=== PATIENT | female | born 1990 | race Caucasian/White ===

== ENCOUNTER 2024-02-15 11:28 | Inpatient (IN) ==
[2024-02-15 12:18] LABS: Hematocrit (blood only) 36.6 % (37.0-47.0); Hemoglobin 12.5 g/dl (12.0-16.0); Mean Corpuscular Hemoglobin 34.6 pg (25.0-34.0); Mean Corpuscular Hgb Conc 34.2 g/dL (32.0-36.0); Mean Corpuscular Volume 101.4 fL (80.0-100.0); Mean Platelet Volume 12.2 fL (9.4-12.4); Platelet Count 60 K/uL (130-400); RDW Standard Deviation 64.4 fL (36.4-46.3); Red Blood Count 3.61 M/uL (4.20-5.40); White Blood Count 7.43 K/ul (4.8-10.8)
[2024-02-15 12:22] LABS: Pregnancy Test, Serum Negative (Negative)
[2024-02-15 12:26] LABS: Albumin Globulin Ratio 0.9 (0.9-2); Albumin Level 3.5 gm/dl (3.4-5.0); BUN Creatinine Ratio 3.5 (10-20); Bilirubin,Total 9.8 mg/dl (0.2-1.0); Calcium 8.9 mg/dl (8.6-10.3); Creatinine Clr Calc Pharmacy 112.1 ml/min; Est GFR (African American) 142.2 ml/min; Est GFR (Non-African American) 122.7 ml/min; Globulin 4.1 gm/dl (2.5-4.0); Potassium 3.2 mmol/L (3.5-5.1); Total Protein 7.6 gm/dl (6.0-8.3)
--- NOTE | 2024-02-15 12:46 | XRay Report ---
XR chest 1V not portable HISTORY: 33 years-old Female Tachycardia; fluid retention COMPARISON: None TECHNIQUE: PA view the chest FINDINGS: Cardiomediastinal and hilar silhouettes are within normal limits. There is no pneumothorax, pleural e ffusion or airspace consolidation. The bones appear grossly intact. IMPRESSION: No acute process. ACT 112: Negative or not required by law. The above report was generated using voice recognition software. It may contain grammatical, syntax o r spelling errors. Electronically signed by: Jean Ignacio M.D. 02/15/2024 12:44 PM
[2024-02-15 13:14] LABS: Basophils # (auto) 0.02 K/uL (0.00-0.20); Basophils % (auto) 0.3 %; Eosinophils # (auto) 0.08 K/uL (0.00-0.50); Eosinophils % (auto) 1.1 %; Immature Granulocytes # (auto) 0.03 K/uL (0.01-0.20); Immature Granulocytes % (auto) 0.4 %; Lymphocytes % (auto) 18.8 %; Monocytes # (auto) 0.58 K/uL (0.11-0.59); Monocytes % (auto) 7.8 %; Neutrophils # (auto) 5.32 K/uL (1.40-6.50); Neutrophils % (auto) 71.6 %
[2024-02-15 15:48] LABS: INR 1.3 (0.9-1.1); Partial Thromboplastin Ratio 1.3; Partial Thromboplastin Time 37 Seconds (21-31); Prothrombin Time 14.3 Seconds (9.0-12.0)
[2024-02-15] MEDS: LORazepam 1 MG/1 ML SYR ED Inj Use IV STA (15:57)
[2024-02-15] MEDS: SODIUM CHLORIDE 0.9% 500 ML IV ONE (15:59)
[2024-02-15] MEDS: POTASSIUM CHLORIDE / WTR 10 MEQ/100 ML PLCT IV ONE (16:00)
[2024-02-15] MEDS: OPTIRAY 320 100ml IV ONE (16:19)
--- NOTE | 2024-02-15 16:38 | CT Scan Report ---
CT SCAN OF THE ABDOMEN AND PELVIS WITH IV CONTRAST CLINICAL HISTORY: Elevated hepatic transaminases. Thrombocytopenia. Abdominal distention. COMPARISON STUDY: No priors. TECHNIQUE: Following the IV administration of 93 cc of Optiray 320, CT scan of the abdomen and pelvi s is performed from the lung bases to the proximal femora. Images are reviewed in the axial, sagittal , and coronal planes. IV contrast was administered without complication. A dose lowering technique wa s utilized adhering to the principles of ALARA. CT DOSE: 726.33 mGy.cm FINDINGS: Lung bases: The heart is normal in size and without pericardial effusion. The lung bases are clear. T here is a tiny hiatal hernia. Esophageal varices are noted. Liver: The contrast-enhanced liver is enlarged, measuring 22 cm in length. The liver demonstrates het erogeneous and diffusely diminished attenuation indicating steatosis. Nodularity of the hepatic surfa ce contour indicates morphologic changes of cirrhosis. There is no intrahepatic biliary ductal dilata tion. The hepatic veins and portal veins are patent. There are innumerable tiny hypoechoic foci seen throughout the liver., Possibly extending tiny cysts versus biliary hamartomas. Gallbladder: There are calcified gallstones no CT evidence of acute cholecystitis. Nonspecific gallbl adder wall thickening/edema is likely related to adjacent hepatocellular disease. Spleen: Normal in size and attenuation. Pancreas: Unremarkable. Adrenal glands: Unremarkable. Kidneys: The contrast enhanced kidneys are normal in size and without hydronephrosis. The kidneys enh ance symmetrically. Abdominal vasculature: The abdominal aorta is normal in course and caliber. Bowel: There is no bowel obstruction. There are prominent periportal collaterals. Fold thickening thr oughout the bowel is nonspecific and may be related to hypoproteinemia. The appendix is well-visuali zed and normal. Peritoneum: There is a small volume of abdominopelvic ascites. No intraperitoneal free air is identif ied. There is a fat and fluid containing umbilical hernia. Lymphadenopathy: Mildly enlarged upper abdominal lymph nodes are likely related to chronic liver dise ase. Pelvic viscera: The bladder is largely decompressed and grossly unremarkable. The uterus and adnexa a re normal as imaged noting bilateral ovarian follicles. Skeletal structures: No lytic or blastic lesions are seen. IMPRESSION: 1. The liver is enlarged, steatotic, and shows morphologic change of cirrhosis. 2. Esophageal varices and a small volume of abdominopelvic ascites indicate portal hypertension. 3. Innumerable tiny round hypodense foci are seen throughout the liver, likely representing tiny cyst s versus biliary hamartomas. This could also represent regenerative nodularity of cirrhosis. GI follo w-up is recommended. 4. Cholelithiasis without CT evidence of acute cholecystitis. 5. Nonspecific fold thickening is seen throughout the bowel, possibly related to hypoproteinemia. Cor relate clinically for signs of a nonspecific enteritis. 6. Additional findings as above. ACT 112: Negative or not required by law. Electronically signed by: Josh Elias M.D. 02/15/2024 4:37 PM
[2024-02-15] MEDS: MULTI-VITAMIN INFUSION 10 ML, THIAMINE HCL 100 MG, FOLIC ACID 1 MG in SODIUM CHLORIDE 0... IV ONE (17:29)
[2024-02-15] MEDS ORDERED: MAGNESIUM HYDROXIDE SUSP 30 ML UDC PO PRN (18:05)
[2024-02-15] MEDS ORDERED: GABAPENTIN 1200MG ALCOHOL WITHDRAWAL LOAD PO STA (18:05)
[2024-02-15] MEDS ORDERED: ONDANSETRON INJ 2 MG/ML 2 ML VIAL IV PRN (18:05)
[2024-02-15] MEDS ORDERED: POLYETHYLENE (MIRALAX) 17 GM PACK PO PRN (18:05)
[2024-02-15] MEDS ORDERED: LORazepam 1 MG in SYRINGE 0.5 ML IV PRN ×2 (18:05→21:55)
[2024-02-15] MEDS ORDERED: ALUMINUM/MAGNESIUM SUSP 30 ML UDC PO PRN (18:05)
[2024-02-15] MEDS ORDERED: ACETAMINOPHEN 325 MG TAB PO PRN (18:05)
--- NOTE | 2024-02-15 18:19 | History & Physical Report ---
Date of Service February 15, 2024 Assessment & Plan (1) Liver failure, acute: (2) Transaminitis: (3) Hepatitis B: (4) Alcohol abuse: (5) Thrombocytopenia: (6) Hypokalemia: Plan Ms. Oneill is a 33 year old female that presents to the ED today as recommended by her PCP after blood work revealed Hepatitis B Positive and Transaminitis. She has explained that she has had a habit of drinking either a bottle of wine multiple shots, or 8-10 beers on a regular almost daily basis. She reports that she is in the process of a separation from her ex- and in a custody faye with him regarding her 7-year-old son. She currently has partial custody of him. She is also in the process of looking for a permanent place to live. She has 2 friends that brought her into the ER today who are nondrinker's and both of her parents are known drinkers and overall good support for her. It appears that everybody has been advising her not to drink alcohol anymore. She is going to counseling with a therapist which has been helpful but she does realize that she is in need of a more intensive rehabilitation in order to abstain from alcohol. Really honest conversation held with her with regards to how severe and concerning her presentation is at such a young age. LFT's done yesterday and today: AST 360--> 309, SLT 54--> 46, Alk Phos 143. T. bili 9.8, serum alcohol level 150. UDS pending and hCG negative. In the ED she received Ativan 2 mg and banana bag. No tremors noted. Patient will be admitted for alcohol induced liver failure. Will trend LFT's, GI consultation to help determine next steps, AWSS scale for withdrawal effects, replace potassium orally, BHL conversation and continued supportive treatment. Acute Liver Failure: Transaminitis: Hepatits B: Alcohol Abuse: Acute Telangiectasia, ecchymosis, epistaxis (yesterday), ascites, scleral icterus LFT's done yesterday and today: AST 360--> 309, SLT 54--> 46, Alk Phos 143 TBili 9.8 Serum Alcohol level 150 UDS pending, HCG negative CTAP: -The liver is enlarged, steatotic, and shows morphologic change of cirrhosis. -Esophageal varices and a small volume of abdominopelvic ascites indicate portal hypertension. -tiny round hypodense foci are seen throughout the liver, likely representing tiny cysts versus biliary hamartomas. This could also represent regenerative nodularity of cirrhosis. GI follow-up is recommended. -Cholelithiasis without CT evidence of acute cholecystitis. -Nonspecific fold thickening is seen throughout the bowel, possibly related to hypoproteinemia. Correlate clinically for signs of a nonspecific enteritis. *MELD score: 18 *Maddrey's Discriminant Function for ETOH Hepatitis: 20.4. > 32 indicates poor prognosis and may benefit from glucocorticoid therapy Check Phos level GI Consult placed May need Hepatology consult in the future Thrombocytopenia: Acute Plt 60 No active overt signs of bleeding, although has had easy bruising Recheck labs in AM Hypokalemia: Acute Serum K+ 3.2; replaced with 1 G IV Add 40 PO KCL Recheck K+ in AM Disposition: PCP: Dr. Rylie Vidal Code Status: Full Code VTE Prophylaxis: KELLY's/SCD's for now I spent a total of 88 minutes coordinating, documenting, and providing care for this patient excluding time spent in the performance of separately billed services. All of the aforementioned completed while collaborating with the assigned attending physician for a full treatment plan. Please see their addendum for further details. History of Present Illness Chief Complaint: referred by outpatient provider Primary Care Provider: Rylie Vidal DO Ms. Oneill is a 33 year old female that presents to the ED today as recommended by her PCP after blood work revealed Hepatitis B Positive and Transaminitis. She has explained that she has had a habit of drinking either a bottle of wine multiple shots, or 8-10 beers on a regular almost daily basis. She reports that she is in the process of a separation from her ex- and in a custody faye with him regarding her 7-year-old son. She currently has partial custody of him. She is also in the process of looking for a permanent place to live. She has 2 friends that brought her into the ER today who are nondrinker's and both of her parents are known drinkers and overall good support for her. It appears that everybody has been advising her not to drink alcohol anymore. She is going to counseling with a therapist which has been helpful but she does realize that she is in need of a more intensive rehabilitation in order to abstain from alcohol. Really honest conversation held with her with regards to how severe and concerning her presentation is at such a young age. LFT's done yesterday and today: AST 360--> 309, SLT 54--> 46, Alk Phos 143. T. bili 9.8, serum alcohol level 150. UDS pending and hCG negative. In the ED she received Ativan 2 mg and banana bag. No tremors noted. CTAP: -The liver is enlarged, steatotic, and shows morphologic change of cirrhosis. -Esophageal varices and a small volume of abdominopelvic ascites indicate portal hypertension. -tiny round hypodense foci are seen throughout the liver, likely representing tiny cysts versus biliary hamartomas. This could also represent regenerative nodularity of cirrhosis. GI follow-up is recommended. -Cholelithiasis without CT evidence of acute cholecystitis. -Nonspecific fold thickening is seen throughout the bowel, possibly related to hypoproteinemia. Correlate clinically for signs of a nonspecific enteritis. *MELD score: 18 *Maddrey's Discriminant Function for ETOH Hepatitis: 20.4. > 32 indicates poor prognosis and may benefit from glucocorticoid therapy On examination, patient is AOx4 and able to answer all questions appropriately. No signs of tremor at bedside. She has telangiectasia on her face, ecchymosis, epistaxis (yesterday), ascites, scleral icterus. Patient will be admitted for alcohol induced liver failure. Will trend LFT's, GI consultation to help determine next steps, AWSS scale for withdrawal effects, replace potassium orally, BHL conversation and continued supportive treatment. Allergies Allergy/AdvReac Type Severity Reaction Status Date / Time No Known Allergies Allergy Unverified 02/15/24 11:42 Home Medications Medication Instructions Recorded Confirmed Type pftjdzfhlsde-stdoykyt-zhba 1 tab PO DAILY 02/15/24 02/15/24 History fumarate 18 mg-folic acid 400 mcg tablet (One-A-Day [facility]) Past Med/Surg History Medical History (Updated 02/15/24 @ 19:23 by Aung Yu MD) Hepatitis B Thrombocytopenia Hypokalemia Alcohol abuse Transaminitis Liver failure, acute Surgical History (Updated 02/15/24 @ 19:38 by SHELBY Singh) No pertinent past surgical history Family History (Updated 02/15/24 @ 19:39 by SHELBY Singh) Other Depression Hypertension Social History Smoking Status: Current some day smoker Tobacco Type: Cigarettes Second Hand Exposure: Yes; Do You Dip or Chew Tobacco: No; Hx Alcohol Use: Yes Alcohol type: beer, wine and hard liquor Hx Substance Use: No Preferred Language: [place] Communication Ability: Effective Cad Application Support Specialist Required: No Beliefs That Will Affect Care: None Current Living Situation: Family Feels Safe at Home: Yes Safety Concerns: Feels Safe At This Time Assistive Devices: None Review of Systems Review of Systems: Neuro: (-) Falls, trauma, slurred speech HEENT: (-) CONNELLY, dizziness, dysphagia, visual or auditory changes CV: (-) CP, palpitations, swelling Resp: (-) SOB GI: (-) appetite changes, N/V/D, bowel changes : (-) urinary changes Skin: (-) rashes (+) easy bruising Psych: (+) anxiety, depression Physical Exam Physical Exam: Neuro: AAOx4, PERRLA, no aphagia, memory changes, CNII-XII grossly intact HEENT: head normocephalic, moist mucus membranes. Telangiectasia on her face. Scleral icterus CV: S1/S2, (-) M/G/R, (-) edema, cap refill < 3 seconds Resp: Lungs CTA in all bernard. On RA GI: Abdomen large and distended with ascites. Dull to percussion. No fluid shifting noted. Soft and nontender. Ax4 bowel sounds, (-) CVA tenderness Musculoskeletal: 5/5 B/L UE strength, 5/5 B/L LE strength. No gait disturbance Skin: (-) rashes , (+) ecchymosis on arms Psych: euthymic mood Results & Data Results & Data Vital Signs (Past 12 Hours) Vital Signs Temp Pulse Pulse Resp BP BP Pulse Ox 02/15/24 14:30 132 H 20 130/86 97 02/15/24 14:00 121 H 20 132/82 96 02/15/24 13:46 122 H 02/15/24 11:42 37.1 C 143 H 18 148/106 H 95 O2 Del Method 02/15/24 14:30 Room Air 04/19/24 14:00 02/15/24 13:46 02/15/24 11:42 Room Air Laboratory Results Short CBC 02/15/24 Range/Units 11:53 WBC 7.43 (4.8-10.8) K/ul Hgb 12.5 (12.0-16.0) g/dl Hct 36.6 L (37.0-47.0) % Plt Count 60 L (130-400) K/uL BMP 02/15/24 11:53 Sodium 138 Potassium 3.2 L Chloride 101 Carbon Dioxide 26 BUN 2 L Creatinine 0.57 L Glucose 102 H Calcium 8.9 Liver Function 02/15/24 Range/Units 11:53 Total Bilirubin 9.8 H (0.2-1.0) mg/dl AST 309 H (13-39) U/L ALT 46 (7-52) U/L Alkaline Phosphatase 143 H (34-104) U/L Albumin 3.5 (3.4-5.0) gm/dl Diagnostic Findings Chest X-Ray 02/15/24 11:48 XR chest 1V not portable HISTORY: 33 years-old Female Tachycardia; fluid retention COMPARISON: None TECHNIQUE: PA view the chest FINDINGS: Cardiomediastinal and hilar silhouettes are within normal limits. There is no pneumothorax, pleural effusion or airspace consolidation. The bones appear grossly intact. IMPRESSION: No acute process. ACT 112: Negative or not required by law. The above report was generated using voice recognition software. It may contain grammatical, syntax or spelling errors. Electronically signed by: Jean Ignacio M.D. 02/15/2024 12:44 PM Abdomen/Pelvis CT 02/15/24 15:04 CT SCAN OF THE ABDOMEN AND PELVIS WITH IV CONTRAST CLINICAL HISTORY: Elevated hepatic transaminases. Thrombocytopenia. Abdominal distention. COMPARISON STUDY: No priors. TECHNIQUE: Following the IV administration of 93 cc of Optiray 320, CT scan of the abdomen and pelvis is performed from the lung bases to the proximal femora. Images are reviewed in the axial, sagittal, and coronal planes. IV contrast was administered without complication. A dose lowering technique was utilized adhering to the principles of ALARA. CT DOSE: 726.33 mGy.cm FINDINGS: Lung bases: The heart is normal in size and without pericardial effusion. The lung bases are clear. There is a tiny hiatal hernia. Esophageal varices are noted. Liver: The contrast-enhanced liver is enlarged, measuring 22 cm in length. The liver demonstrates heterogeneous and diffusely diminished attenuation indicating steatosis. Nodularity of the hepatic surface contour indicates morphologic changes of cirrhosis. There is no intrahepatic biliary ductal dilatation. The hepatic veins and portal veins are patent. There are innumerable tiny hypoechoic foci seen throughout the liver., Possibly extending tiny cysts versus biliary hamartomas. Gallbladder: There are calcified gallstones no CT evidence of acute cholecystitis. Nonspecific gallbladder wall thickening/edema is likely related to adjacent hepatocellular disease. Spleen: Normal in size and attenuation. Pancreas: Unremarkable. Adrenal glands: Unremarkable. Kidneys: The contrast enhanced kidneys are normal in size and without hydronephrosis. The kidneys enhance symmetrically. Abdominal vasculature: The abdominal aorta is normal in course and caliber. Bowel: There is no bowel obstruction. There are prominent periportal collaterals. Fold thickening throughout the bowel is nonspecific and may be related to hypoproteinemia. The appendix is well-visualized and normal. Peritoneum: There is a small volume of abdominopelvic ascites. No intraperitoneal free air is identified. There is a fat and fluid containing umbilical hernia. Lymphadenopathy: Mildly enlarged upper abdominal lymph nodes are likely related to chronic liver disease. Pelvic viscera: The bladder is largely decompressed and grossly unremarkable. The uterus and adnexa are normal as imaged noting bilateral ovarian follicles. Skeletal structures: No lytic or blastic lesions are seen. IMPRESSION: 1. The liver is enlarged, steatotic, and shows morphologic change of cirrhosis. 2. Esophageal varices and a small volume of abdominopelvic ascites indicate portal hypertension. 3. Innumerable tiny round hypodense foci are seen throughout the liver, likely representing tiny cysts versus biliary hamartomas. This could also represent regenerative nodularity of cirrhosis. GI follow-up is recommended. 4. Cholelithiasis without CT evidence of acute cholecystitis. 5. Nonspecific fold thickening is seen throughout the bowel, possibly related to hypoproteinemia. Correlate clinically for signs of a nonspecific enteritis. 6. Additional findings as above. ACT 112: Negative or not required by law. Electronically signed by: Josh Elias M.D. 02/15/2024 4:37 PM Code Status & VTE Plan Code Status Full Code in the event of cardiac or respiratory arrest VTE Prophylaxis Plan VTE Prophylaxis will be ordered: Yes Supervising Physician Co-Signing Physician Notes I have seen and examined the patient and have discussed the case with the provider above. I have reviewed the advanced practitioner's documentation, and I agree with, and take responsibility for that plan of care. This is a 33 yo alcoholic female presenting with signs and symptoms of progressed liver disease. Evidence of cirrhosis with small volume newly developed ascites (per her report), evidence of portal hypertension as noted above. She reports concern over red spots on her superior anterior chest which are consistent with spider angiomata related to liver disease. She denies any abdominal pain, fevers, chills or other issues today. She is intoxicated with ETOH on arrival today, coming to the ER per referral from her PCP for abnormal outpatient bloodwork. My exam is consistent with that noted above. Meds/labs/imaging reviewed. Hyperbilirubinemia with total bili 9.8. MELD i s 18, MDF is 16. Elevation is AST likely related to recent alcohol use. Thrombocytopenia possibly related to chronic liver damage. Agree with trending labs in am and consulting GI. She is not encephalopathic and has minimal ascitic fluid present. CT a/p reveals no evidence of PVT. She was extensively counseled on the need to quit drinking with encouragement to consider inpatient rehab from hospital discharge. She was counseled on alcohol withdrawal and did receive Ativan IV in the ER. Cont PRN. Banana bag given and cont with thiamine and folate supplementation. Appreciate GI recommendations for additional workup/recommendations. DO Sunday
[2024-02-15] MEDS: GABAPENTIN 600 MG TAB PO ONE (18:55)
[2024-02-15] MEDS: POTASSIUM CHLORIDE / WTR 10 MEQ/100 ML PLCT IV SCH (19:15)
--- NOTE | 2024-02-15 19:23 | Emergency Department Note ---
Impression & Plan Liver failure, acute, Transaminitis, Alcohol abuse, Hypokalemia ED Provider Note NAME: JOHANNA SNEED AGE: 33 SEX: Female INFORMANT: Patient ED PROVIDER(S): Aung Yu MD CHIEF COMPLAINT: Referred by For abnormal labs PLAN: Disposition: Admitted Outpatient prescription management: none Referral: None MEDICAL DECISION MAKING: Patient presented due to abnormal LFTs. On physical examination she had stigmata of liver failure. Her laboratory testing revealed a unremarkable white blood cell count and hemoglobin. Platelet count was low at 60 bpm. Chemistry panel revealed mild hypokalemia. Her liver functions reveal a significant elevation of AST at 309. ALT within normal limits. Alk phos minimally elevated. Patient's blood alcohol level was significantly elevated 150. Patient states that she did stop consuming alcohol about 12 hours ago. ECG showed a sinus tachycardia at 135. Patient was given a banana bag. She was also given IV Ativan as I did have concerns for mild withdrawal given her tachycardia. Patient was treated with IV potassium. CT imaging was performed and reveals hepatic steatosis and ascites. Varices also noted. Patient has no complaints to suggest active GI bleeding or recent GI bleeding. Labs do not support this either. Patient is going to need admission to the hospital for further workup and management. Patient in agreement. Consultation was made with the [facility] hospitalist service. Patient was evaluated in the ER and admitted for further management Care/management discussed with: operational risk manager Level of care consideration(s): After review of the information above and other included data, I feel the patient requires escalation of care to admission Triage Nursing notes: reviewed and agree them. Vital Signs: reviewed and remarkable for tachycardia. Last heart rate documented was 142 at 1806. On reassessment the heart rate had improved and was 110 at 1922. Additional History obtained from: none Chronic Medical/Social Conditions affecting care: Alcohol abuse Prior/ Outside/ External records reviewed: Outpatient laboratory testing from the [facility] system obtained. Patient was found to have a platelet count of 55 with a hemoglobin of 12. Differential Diagnosis: Etiologies such as alcohol abuse, liver failure, gastroenteritis, food borne illness, infections, appendicitis, diverticulitis, inflammatory bowel disease, GI bleed, biliary pathology, as well as others were entertained. Diagnostics, independently interpreted by me: ECG: Twelve-lead ECG reveals sinus tachycardia [address] elevation or depression. Cardiac Monitoring: Cardiac monitoring ordered by me: The patient was placed on continuous cardiac monitoring and observed. It revealed a sinus tachycardia at 105 beats per minute without ectopy or evidence of dysrhythmia. Medical decision rules: none Imaging studies: CT scan as above. I refer you to the EMR for further details. HPI: 33 year old Female arrives for evaluation of abnormal labs. Patient had blood work done at the [facility] and was found to have elevated LFTs and low platelets. Patient was referred to the ER for further evaluation. She notes drinking alcohol every few days. She denies having withdrawal symptoms. She states she did go "hard" on alcohol last night and stopped drinking around 3 AM. Patient does note some bumps and bruises that have popped up and did have some nosebleeds but none currently. Patient denies any hematemesis. No new medications prescribed. Patient denies any mushroom use or Tylenol use. She does note some abdominal distention but that has improved over the last few days. She did have some constipation but that had resolved. Pt denies LOC, headache, fevers, chills, diaphoresis, visual changes, neck pain, chest pain, breathing difficulties, nausea, vomiting, abdominal pain, back pain, melena, hematochezia, urinary symptoms, numbness, weakness, lymphadenopathy, rash, or other complaints.. PAST MEDICAL HISTORY: See Below, PAST SURGICAL HISTORY: See Below, SOCIAL HISTORY: See Below, alcohol use HOME MEDICATIONS: See Below ALLERGIES: See Below VITALS: See Below PHYSICAL EXAMINATION: GENERAL: Awake, alert, anxious-appearing, in no distress HENT: Normocephalic, atraumatic. Oropharynx unremarkable. EYES: Normal conjunctiva. Sclera mildly-icteric. NECK: Inspection normal. Non-tender. Supple. No nuchal rigidity. FROM. No masses. RESPIRATORY: Clear to auscultation. No wheezes. No rales. Normal respiratory effort. CARDIAC: Tachycardic rate. Normal rhythm. No murmurs. No rubs. Extremities warm and well perfused. Pulses equal. No JVD. GI: Soft, minimally-distended. Positive fluid wave. No tenderness to palpation. No rebound or guarding. No masses. RECTAL: Deferred. MUSCULOSKELETAL: Atraumatic. Chest examination reveals no tenderness. The back is symmetrical on inspection without obvious abnormality. There is no CVA tenderness to palpation. No joint edema. LOWER EXTREMITIES: Calves are equal size bilaterally and non-tender. No edema. No discoloration. NEURO: Normal sensorium. No sensory or motor deficits noted. SKIN: Spider telangiectasia present on the chest wall. No other rash or jaundice noted. PROCEDURES: none CRITICAL CARE: none OBSERVATION NOTE: none Past Med/Surg History Medical History (Updated 02/15/24 @ 19:23 by Aung Yu MD) Hepatitis B Thrombocytopenia Hypokalemia Alcohol abuse Transaminitis Liver failure, acute Social History Smoking Status: Current every day smoker Tobacco Type: Cigarettes Preferred Language: Romanian Feels Safe at Home: Yes Allergies Allergies Allergy/AdvReac Type Severity Reaction Status Date / Time No Known Allergies Allergy Unverified 02/15/24 11:42 Home Meds Home Medications Medication Instructions Recorded Confirmed [id number] 1 tab PO DAILY 02/15/24 02/15/24 fumarate 18 mg-folic acid 400 mcg tablet (One-A-Day Women's Complete) Results & Data (ED) Vital Signs Vital Signs - 24 hr 02/15/24 11:42 02/15/24 13:46 02/15/24 14:00 Temperature 37.1 C Temperature Source Oral Pulse Rate 143 H 122 H Pulse Rate [Apical] 121 H Pulse Rhythm Regular Pulse Strength Normal Respiratory Rate 18 20 Respiratory Effort / Characteristics Non-Labored Spontaneous Respiratory Depth Normal Respiratory Pattern Regular Blood Pressure 148/106 H Blood Pressure [Right Arm] 132/82 Blood Pressure Mean 120 Blood Pressure Mean [Right Arm] 98 Blood Pressure Position Sitting Pulse Oximetry 95 96 Oxygen Delivery Method Room Air Sepsis Recent Fever Within 48 Hours No Sepsis New/Unexplained Change in Mental Status No Sepsis Action Taken by Nursing No Action Required 02/15/24 14:30 02/15/24 16:00 02/15/24 18:06 Temperature Temperature Source Pulse Rate Pulse Rate [Apical] 132 H 126 H 142 H Pulse Rhythm Pulse Strength Respiratory Rate 20 20 20 Respiratory Effort / Characteristics Respiratory Depth Respiratory Pattern Blood Pressure Blood Pressure [Right Arm] 130/86 127/79 121/82 Blood Pressure Mean Blood Pressure Mean [Right Arm] 100 95 95 Blood Pressure Position Pulse Oximetry 97 96 96 Oxygen Delivery Method Room Air Room Air Sepsis Recent Fever Within 48 Hours Sepsis New/Unexplained Change in Mental Status Sepsis Action Taken by Nursing Laboratory Data 02/15/24 11:53 02/15/24 11:53 Lab Results 02/15/24 02/15/24 Range/Units 11:53 14:32 WBC 7.43 (4.8-10.8) K/ul RBC 3.61 L (4.20-5.40) M/uL Hgb 12.5 (12.0-16.0) g/dl Hct 36.6 L (37.0-47.0) % MCV 101.4 H (80.0-100.0) fL MCH 34.6 H (25.0-34.0) pg MCHC 34.2 (32.0-36.0) g/dL RDW Std Deviation 64.4 H (36.4-46.3) fL RDW Coeff of Thomas 18.0 H (11.5-14.5) % Plt Count 60 L (130-400) K/uL MPV 12.2 (9.4-12.4) fL Immature Gran % (Auto) 0.4 % Neut % (Auto) 71.6 % Lymph % (Auto) 18.8 % [place] % (Auto) 7.8 % Eos % (Auto) 1.1 % Baso % (Auto) 0.3 % Neut # (Auto) 5.32 (1.40-6.50) K/uL Lymph # (Auto) 1.40 (1.20-3.40) K/uL [place] # (Auto) 0.58 (0.11-0.59) K/uL Eos # (Auto) 0.08 (0.00-0.50) K/uL Baso # (Auto) 0.02 (0.00-0.20) K/uL Immature Gran # (Auto) 0.03 (0.01-0.20) K/uL PT 14.3 H (9.0-12.0) Seconds INR 1.3 H (0.9-1.1) APTT 37 H (21-31) Seconds PTT Ratio 1.3 Sodium 138 (136-145) mmol/L Potassium 3.2 L (3.5-5.1) mmol/L Chloride 101 (98-107) mmol/L Carbon Dioxide 26 (21-32) mmol/L Anion Gap 11 (3-11) BUN 2 L (6-23) mg/dl Creatinine 0.57 L (0.6-1.2) mg/dl Est Cr Clr Drug Dosing 112.1 ml/min Est GFR ( Amer) 142.2 ml/min Est GFR (Non-Af Amer) 122.7 ml/min BUN/Creatinine Ratio 3.5 L (10-20) Glucose 102 H (70-99(Fasting)) mg/dl Calcium 8.9 (8.6-10.3) mg/dl Total Bilirubin 9.8 H (0.2-1.0) mg/dl AST 309 H (13-39) U/L ALT 46 (7-52) U/L Alkaline Phosphatase 143 H (34-104) U/L Total Protein 7.6 (6.0-8.3) gm/dl Albumin 3.5 (3.4-5.0) gm/dl Globulin 4.1 H (2.5-4.0) gm/dl Albumin/Globulin Ratio 0.9 (0.9-2) Lipase 59 (11-82) U/L HCG, Qual Negative (Negative) Ethyl Alcohol mg/dL 150.9 H (<10.0) mg/dl Administered Medications Discontinued Medications Gabapentin (Gabapentin 600 Mg Tab) 1,200 mg PO NOW ONE Stop: 02/15/24 18:06 Last Admin: 02/15/24 18:55 Dose: 1,200 mg Documented By: LUIS Multivitamins 10 ml/ Thiamine HCl 100 mg/ Folic Acid 1 mg/Sodium Chloride 1,011.2 mls @ 500 mls/hr IV .Q2H2M ONE Stop: 02/15/24 17:46 Last Admin: 02/15/24 17:29 Dose: 500 mls/hr Documented By: LUIS Sodium Chloride (Nss) 500 mls @ 999 mls/hr IV .Q31M ONE Stop: 02/15/24 16:15 Last Infusion: 02/15/24 16:43 Dose: Infused Documented By: Admin: 02/15/24 15:59 Dose: 999 mls/hr Documented By: LUIS Potassium Chloride (K Carlos Manuel / Wtr) 10 meq in 100 mls @ 100 mls/hr IV ONE ONE Stop: 02/15/24 16:45 Last Infusion: 02/15/24 17:07 Dose: Infused Documented By: Admin: 02/15/24 16:00 Dose: 100 mls/hr Documented By: LUIS Ioversol (Optiray 320 100ml) 93 ml IV ONCE ONE Stop: 02/15/24 16:20 Last Admin: 02/15/24 16:19 Dose: 93 ml Documented By: RENO Lorazepam (Lorazepam 1 Mg/1 Ml Syr Ed Inj Use) 2 mg IV ONE STA Stop: 02/15/24 15:46 Last Admin: 02/15/24 15:57 Dose: 2 mg Documented By: LUIS Imaging Data Radiologist's Impression: Chest X-Ray 02/15/24 11:48 XR chest 1V not portable HISTORY: 33 years-old Female Tachycardia; fluid retention COMPARISON: None TECHNIQUE: PA view the chest FINDINGS: Cardiomediastinal and hilar silhouettes are within normal limits. There is no pneumothorax, pleural effusion or airspace consolidation. The bones appear grossly intact. IMPRESSION: No acute process. ACT 112: Negative or not required by law. The above report was generated using voice recognition software. It may contain grammatical, syntax or spelling errors. Electronically signed by: Jean Ignacio M.D. 02/15/2024 12:44 PM Abdomen/Pelvis CT 02/15/24 15:04 CT SCAN OF THE ABDOMEN AND PELVIS WITH IV CONTRAST CLINICAL HISTORY: Elevated hepatic transaminases. Thrombocytopenia. Abdominal distention. COMPARISON STUDY: No priors. TECHNIQUE: Following the IV administration of 93 cc of Optiray 320, CT scan of the abdomen and pelvis is performed from the lung bases to the proximal femora. Images are reviewed in the axial, sagittal, and coronal planes. IV contrast was administered without complication. A dose lowering technique was utilized adhering to the principles of ALARA. CT DOSE: 726.33 mGy.cm FINDINGS: Lung bases: The heart is normal in size and without pericardial effusion. The lung bases are clear. There is a tiny hiatal hernia. Esophageal varices are noted. Liver: The contrast-enhanced liver is enlarged, measuring 22 cm in length. The liver demonstrates heterogeneous and diffusely diminished attenuation indicating steatosis. Nodularity of the hepatic surface contour indicates morphologic changes of cirrhosis. There is no intrahepatic biliary ductal dilatation. The hepatic veins and portal veins are patent. There are innumerable tiny hypoechoic foci seen throughout the liver., Possibly extending tiny cysts versus biliary hamartomas. Gallbladder: There are calcified gallstones no CT evidence of acute cholecystitis. Nonspecific gallbladder wall thickening/edema is likely related to adjacent hepatocellular disease. Spleen: Normal in size and attenuation. Pancreas: Unremarkable. Adrenal glands: Unremarkable. Kidneys: The contrast enhanced kidneys are normal in size and without hydronephrosis. The kidneys enhance symmetrically. Abdominal vasculature: The abdominal aorta is normal in course and caliber. Bowel: There is no bowel obstruction. There are prominent periportal collaterals. Fold thickening throughout the bowel is nonspecific and may be related to hypoproteinemia. The appendix is well-visualized and normal. Peritoneum: There is a small volume of abdominopelvic ascites. No intraperitoneal free air is identified. There is a fat and fluid containing umbilical hernia. Lymphadenopathy: Mildly enlarged upper abdominal lymph nodes are likely related to chronic liver disease. Pelvic viscera: The bladder is largely decompressed and grossly unremarkable. The uterus and adnexa are normal as imaged noting bilateral ovarian follicles. Skeletal structures: No lytic or blastic lesions are seen. IMPRESSION: 1. The liver is enlarged, steatotic, and shows morphologic change of cirrhosis. 2. Esophageal varices and a small volume of abdominopelvic ascites indicate portal hypertension. 3. Innumerable tiny round hypodense foci are seen throughout the liver, likely representing tiny cysts versus biliary hamartomas. This could also represent regenerative nodularity of cirrhosis. GI follow-up is recommended. 4. Cholelithiasis without CT evidence of acute cholecystitis. 5. Nonspecific fold thickening is seen throughout the bowel, possibly related to hypoproteinemia. Correlate clinically for signs of a nonspecific enteritis. 6. Additional findings as above. ACT 112: Negative or not required by law. Electronically signed by: Josh Elias M.D. 02/15/2024 4:37 PM Discharge Plan Visit Data Chief Complaint: Referred by Doctor Stated Complaint: LIVER PROBLEMS, REF BY DOC ED Provider: Aung Yu Discharge Problem: Liver failure, acute, Transaminitis, Alcohol abuse, Hypokalemia Forms Stand Alone Forms: My [facility] Prescriptions Prescriptions: No Action One-A-Day Women's Complete 18 mg iron- 400 mcg Tablet 1 tab PO DAILY Referrals Referrals: Rylie Vidal DO [Primary Care Provider] -
[2024-02-15 20:18] LABS: Folate (Folic Acid),Ser orPlas 14.66 ng/ml (>5.38)
[2024-02-15] MEDS: POTASSIUM CHLORIDE CRTAB 20 MEQ TABCR PO STA (21:32)
[2024-02-15] MEDS ORDERED: PROMETHAZINE HCL 6.25 MG in SODIUM CHLORIDE 0.9% 50 ML IV PRN (21:53)
[2024-02-15] MEDS ORDERED: LORazepam 2 MG in SYRINGE 1 ML IV PRN (21:55)
[2024-02-15] MEDS ORDERED: LORazepam 3 MG in SYRINGE 1.5 ML IV PRN (21:55)
[2024-02-15] MEDS ORDERED: Ativan IV Alcohol Withdrawal--Active Protocol IV PRN (21:55)
[2024-02-15 22:35] LABS: Magnesium 1.7 mg/dl (1.7-2.4)
[2024-02-15] MEDS: NSS + 20MEQ KCL 20 MEQ/1,000 ML BAG IV ONE (22:41)
[2024-02-15] MEDS: POTASSIUM CHLORIDE PWD 20 MEQ PACK PO STA (22:41)
--- NOTE | 2024-02-15 22:52 | Communication Note ---
Date of Service: February 15, 2024 9:45 PM Patient with self-limited epistaxis episode without headache complaints. 1050 PM Hematemesis without unusual abdominal pain as per RN. SBP 110s Heart rate 1 40-1 60s as per RN Hemoglobin 9.5 from 12.5 on admission platelets 45 from 60 on admission AP UGIB Esophageal varices on CT imaging Alcoholic cirrhosis Anemia secondary to above Worsening thrombocytopenia ICU transfer due to hemodynamic instability N.p.o. IV PPI and IV octreotide Transfuse 1 unit PRBC given active bleeding Transfuse 1 unit for his platelets given level less than [address] Case [address] Patel of GI. Emergent EGD to be done tonight.
[2024-02-15] MEDS: ALBUMIN 25% 25 GM/100 ML VIAL IV ONE (22:56)
[2024-02-15] MEDS ORDERED: ACETAMINOPHEN 500 MG TAB PO PRN (23:07)
[2024-02-15 23:08] LABS: Basophils # (auto) 0.02 K/uL (0.00-0.20); Basophils % (auto) 0.3 %; Eosinophils # (auto) 0.06 K/uL (0.00-0.50); Eosinophils % (auto) 0.9 %; Hematocrit (blood only) 28.6 % (37.0-47.0); Hemoglobin 9.5 g/dl (12.0-16.0); Immature Granulocytes # (auto) 0.03 K/uL (0.01-0.20); Immature Granulocytes % (auto) 0.5 %; Lymphocytes # (auto) 1.52 K/uL (1.20-3.40); Mean Corpuscular Hemoglobin 34.4 pg (25.0-34.0); Mean Corpuscular Hgb Conc 33.2 g/dL (32.0-36.0); Mean Corpuscular Volume 103.6 fL (80.0-100.0); Mean Platelet Volume 12.5 fL (9.4-12.4); Monocytes # (auto) 0.55 K/uL (0.11-0.59); Monocytes % (auto) 8.3 %; Neutrophils # (auto) 4.43 K/uL (1.40-6.50); Platelet Count 45 K/uL (130-400); RDW Coefficient of Variation 18.6 % (11.5-14.5); RDW Standard Deviation 67.2 fL (36.4-46.3); Red Blood Count 2.76 M/uL (4.20-5.40); White Blood Count 6.61 K/ul (4.8-10.8)
[2024-02-15] MEDS ORDERED: STAT IV/IM STA (23:13)
[2024-02-15] MEDS ORDERED: SODIUM CHLORIDE 0.9% 250 ML IV PRN (23:18)
[2024-02-15] MEDS: PROMETHAZINE HCL 6.25 MG in SODIUM CHLORIDE 0.9% 50 ML IV STA (23:19)
[2024-02-15] MEDS: PANTOprazole 80 MG in DEXTROSE 5% 100 ML IV STA (23:20)
[2024-02-15] MEDS: MAGNESIUM SULFATE / D5W 1 GM/100 ML BAG IV ONE (23:30)
[2024-02-15] MEDS: cefTRIAXone SODIUM 2,000 MG in DEXTROSE 5 % MINI-B 50 ML IV SCH (23:40)
[2024-02-15 23:45] LABS: INR 1.5 (0.9-1.1); Prothrombin Time 15.6 Seconds (9.0-12.0)
[2024-02-16] MEDS: PANTOprazole 40 MG in DEXTROSE 5% MINI-B 100 ML IV SCH (00:10)
[2024-02-16] MEDS: METOPROLOL TARTRATE 1 MG/ML VIAL IV STA (00:21)
--- NOTE | 2024-02-16 00:22 | Anesthesiology Consultation ---
Date of Service February 16, 2024 Assessment & Plan Chart Review Chart Review: Acceptable Risk for Surgery and Patient NOT seen in Pre Admission Testing Consults Requested none ASA [id number] Proposed Anesthesia Anesthesia Type: General History Height/Weight Height: 5 ft 2 in Weight: 58.2 kg Allergies Allergy/AdvReac Type Severity Reaction Status Date / Time No Known Allergies Allergy Unverified 02/15/24 11:42 Medications Home Medications Medication Instructions Recorded Confirmed Last Taken myszbqmbwqhj-swifvjnd-shua 1 tab PO DAILY 02/15/24 02/15/24 Unknown fumarate 18 mg-folic acid 400 mcg tablet (One-A-Day Women's Complete) Active Medications Generic Name Dose Route Start Last Admin Trade Name Freq PRN Reason Stop Dose Admin Ceftriaxone Sodium 2,000 mg/ 50 mls @ 100 mls/hr 02/15/24 23:00 02/15/24 23:40 Dextrose IV 02/25/24 22:59 100 mls/hr Q24H ELVIA Administration Protocol Past Medical History Medical History Hepatitis B Thrombocytopenia Hypokalemia Alcohol abuse Transaminitis Liver failure, acute GI Bleed Anemia cirrhosis esophageal varices ascites Exercise / Class Metabolic Activity II 4-5 Yardwork/Stairs/Walk up hill Past Family History Family History Other Depression Hypertension Past Surgical History Surgical History No pertinent past surgical history Past Anesthesia History No Hx of Anesthesia Complications and No Family Hx of Anesthesia Complications History of PONV No Hx of PONV and No Hx of Motion Sickness Social History Smoking Status: Current some day smoker Do You Dip or Chew Tobacco: No Hx Alcohol Use: Yes Alcohol type: beer, wine and hard liquor alcohol intake frequency: a few times a week Alcohol Intake Frequency Comment: last drink 02/14/24 Hx Substance Use: No Physical Exam Vital Signs Last Vital Signs Temp 37.4 C 02/15/24 23:10 Pulse 148 H 02/15/24 23:10 Resp 20 02/15/24 23:10 BP 112/76 02/15/24 23:10 Pulse Ox 96 02/15/24 23:10 O2 Del Method Room Air 02/15/24 23:10 Testing Laboratory Results 02/15/24 22:26 02/15/24 11:53 PT 15.6 Seconds (9.0-12.0) H 02/15/24 22:26 INR 1.5 (0.9-1.1) H 02/15/24 22:26 APTT 37 Seconds (21-31) H 02/15/24 11:53 Electrocardiogram Date: 02/15/24 Findings: + ST @ (@ 135) Chest X-Ray Date: 02/15/24 Findings: + NAD
--- NOTE | 2024-02-16 00:38 | Critical Care Consultation ---
Date of Consultation February 16, 2024 Assessment & Plan (1) Acute GI bleeding: Reason Critically Ill: 33-year-old female with history of EtOH abuse presents to the ICU following admission for acute liver failure, with development of GI bleed and varices noted on CT abdomen and pelvis. Currently receiving blood product transfusion, while awaiting emergent EGD. Neuro - [facility] ICU: Negative EtOH abuseno current symptoms of alcohol withdrawal. EtOH 150 on admission. Continue with GRACIELA S scale and Ativan as needed Cardiac - Tachycardialikely compensatory following acute GI bleed. Sinus tachycardia on monitor. Currently hemodynamically stable. Will continue to transfuse with blood product and expect to improve. -No prior history of cardiac disease -Continuous monitor on telemetry Respiratory - No history of pulmonary disease. Lungs clear to auscultation. No respiratory distress and maintaining oxygen saturation on room air. Continuous monitoring on pulse ox. GI - Acute GI bleedCT abdomen and pelvis with findings of esophageal varices, and expect this is source of GI bleed. Patient has had 1 episode of hematemesis and an episode of melena on arrival to the ICU. -Hemoglobin 12.5-9.5. Trend every 4 hours -See below for transfusion -Continue Protonix and octreotide drips -Stat GI consult and undergoing emergent EGD. Pending findings may need transfer to tertiary center. -Sophie bedside Acute liver failurepatient with transaminitis, with AST 309, ALT 46, alk phos 1 43, total bili 9.8 -Expect alcoholic hepatitis although reports of hepatitis B positive in the outpatient, may be multifactoral -MELD 18 on admission -Hepatitis panel pending -Check acetaminophen level -CT abdomen and pelvis with enlarged liver, hepatic steatosis and morphological cirrhotic changes; esophageal varices and small amount of abdominopelvic ascites indicating portal hypertension; and tiny round hypodense foci throughout the liver representing cyst versus biliary Pollard Caesar's; cholelithiasis without CT evidence of acute cholecystitis -GI consult pending RENAL/LYTES - Creatinine within normal limits. Monitor routine BMPs and replete electrolytes as indicated - Strict I's and O's ENDO - No history of diabetes or thyroid disease. ICU hyperglycemic protocol HEME - Acute blood loss anemiahemoglobin 12.5-9.5, secondary to acute GI bleed as discussed above -Initial INR 1.5, platelets now 45,000 -Receiving 2 units FFP, 2 units RBCs, 1 unit platelets. -Trend H&H every 4 hours and repeat coags following transfusion ID - Continue empiric ceftriaxone LINES/IV ACCESS - Peripheral IVs x 2 DVT PROPHYLAXIS - SCDs, hold anticoagulation in the setting of GI bleed I have personally spent 55 minutes of critical care time in the direct management of this patient. This is a life/limb threatening event. This includes time spent evaluating patient, direct bedside care, chart review, placing orders, interpretation of diagnostic studies, discussion with consultants, patient, and family members, as well as other required patient management activities. This time is exclusive of all separately billable procedures, and teaching time and separate from and in addition to any other critical care service time. Thank you for allowing us to participate in the care of this patient. Please refer to my attending physician's documentation for any further recommendations. (2) Liver failure, acute: (3) Esophageal varices: (4) Cirrhosis: (5) Hepatitis B: (6) Thrombocytopenia: (7) Alcohol abuse: History of Present Illness Attending Physician: Carla Brand DO History of Present Illness 33-year-old female presents to the emergency department earlier last evening with referral from her PCP after finding elevated LFTs and was found to be hepatitis B positive. Patient has history of EtOH abuse, actively drinks and reports 8-10 drinks per day. Patient found to have EtOH 150 on arrival to the emergency department, transaminitis with AST 360, ALT 54, and alk phos 143, T. bili 9.8. Initial MELD score of 18. She was given banana bag and 2 mg IV Ativan in the emergency department. CT abdomen and pelvis showed hepatomegaly with hepatic steatosis and morphologic change of cirrhosis, esophageal varices with abdominopelvic ascites indicating portal hypertension, cholelithiasis without evidence of acute cholecystitis. Patient was admitted to PCU, and undergoing treatment for acute liver failure, when she developed hematemesis and had 1 episode of melena. Patient transferred to ICU with plan for emergent EGD this evening, with stat GI consult pending. She was started on Protonix and to create tight drips, and platelets and RBCs ordered. On arrival to the ICU the patient is alert and oriented and hemodynamically stable. She has noted to be tachycardic with rates in the 130s, but does not exhibit distress. She denies lightheadedness or dizziness or episodes of syncope. She reports 1 episode of bright red hematemesis earlier this evening. Patient reports recent development of abdominal distention approximately 4 days ago, and also noted red spots on her chest (petechiae). She denies recent illness or fevers, sore throat or cough, shortness of breath, chest pain or palpitations, abdominal pain, swelling in hands or feet, burning or urinary hesitancy, or changes in gait. Patient remain in ICU for further management at this time. Allergies Allergy/AdvReac Type Severity Reaction Status Date / Time No Known Allergies Allergy Unverified 02/15/24 11:42 Home Medications Medication Instructions Recorded Confirmed Type iijxhhyobsrw-loustijd-mlmk 1 tab PO DAILY 02/15/24 02/15/24 History fumarate 18 mg-folic acid 400 mcg tablet (One-A[facility]Day [facility]) Patient History Medical History Hepatitis B Thrombocytopenia Hypokalemia Alcohol abuse Transaminitis Liver failure, acute Surgical History No pertinent past surgical history Family History Other Depression Hypertension Social History Smoking Status: Current some day smoker Tobacco Type: Cigarettes Second Hand Exposure: Yes; Do You Dip or Chew Tobacco: No; Hx Alcohol Use: Yes Alcohol type: beer, wine and hard liquor Hx Substance Use: No Preferred Language: Bulgarian Communication Ability: Effective Shear Operator Helper Required: No Beliefs That Will Affect Care: None Current Living Situation: Family Feels Safe at Home: Yes Safety Concerns: Feels Safe At This Time Assistive Devices: None Review of Systems Review of Systems: All systems reviewed & are unremarkable except as noted in HPI & below Results & Data Results & Data Vital Signs (Past 12 Hours) Vital Signs Temp Pulse Pulse Resp BP BP Pulse Ox 02/15/24 23:10 37.4 C 148 H 20 112/76 96 02/15/24 22:50 37.4 C 142 H 18 113/80 96 02/15/24 22:00 37.4 C 127 H 18 113/76 96 02/15/24 21:50 37.4 C 124 H 20 113/76 96 02/15/24 20:21 127 H 02/15/24 20:21 37.4 C 118 H 22 118/80 96 02/15/24 18:06 142 H 20 121/82 96 02/15/24 16:00 126 H 20 127/79 96 02/15/24 14:30 132 H 20 130/86 97 02/15/24 14:00 121 H 20 132/82 96 02/15/24 13:46 122 H O2 Del Method 02/15/24 23:10 Room Air 02/15/24 22:50 Room Air 02/15/24 22:00 Room Air 02/15/24 21:50 Room Air 02/15/24 20:21 02/15/24 20:21 Room Air 02/15/24 18:06 Room Air 02/15/24 16:00 02/15/24 14:30 Room Air 02/15/24 14:00 02/15/24 13:46 Coding Level of Care Code 23795 CRITICAL CARE 1ST 30-74M Diagnoses Acute GI bleeding K92.2 Liver failure, acute K72.00 Esophageal varices I85.00 Cirrhosis K74.60 Hepatitis B B19.10 Thrombocytopenia D69.6 Alcohol abuse F10.10
[2024-02-16] MEDS ORDERED: NALOXONE HCL 0.4 MG/1 ML VIAL/CARP IV PRN (00:41)
[2024-02-16] MEDS ORDERED: ONDANSETRON INJ 2 MG/ML 2 ML VIAL IV PRN (00:41)
[2024-02-16] MEDS ORDERED: ATROPINE SULFATE 0.1 MG/ML 10ML SYR IV PRN (00:41)
[2024-02-16] MEDS ORDERED: fentaNYL citrate PF 100 MCG/2 ML VIAL IV PRN (00:41)
[2024-02-16] MEDS ORDERED: FLUMAZENIL 0.1 MG/1 ML 10 ML VIAL IV PRN (00:41)
[2024-02-16] MEDS ORDERED: ePHEDrine sulfate 50 MG/ML AMP IV PRN (00:41)
[2024-02-16] MEDS ORDERED: PROMETHAZINE HCL 6.25 MG in SODIUM CHLORIDE 0.9% 50 ML IV PRN (00:41)
[2024-02-16] MEDS: SODIUM CHLORIDE 0.9% 1,000 ML IV ONE (00:45)
--- NOTE | 2024-02-16 00:52 | Gastrointestinal Consultation ---
Date of Consultation February 16, 2024 Assessment & Plan (1) Alcohol abuse: Will need to abstain from all alcohol in the future Monitor for signs of alcohol withdrawal and continue prophylactic treatment as per protocol (2) Hepatitis B: Will need to see Hepatology in the near future for further evaluation and recommendations (3) Cirrhosis: Will need workup for chronic liver disease with hepatology (4) Acute blood loss anemia: Hematemesis most likely secondary to variceal bleeding Continue Protonix and Octreotide gtt now She has received IV Rocephin Discussed case with [facility] team and Anesthesia Emergent EGD Now History of Present Illness Reason for Consultation: Alcoholic liver disease Attending Physician: Carla Brand DO History of Present Illness Verona Oneill is a 33 yo CF with a history of chronic alcohol abuse and a recent diagnosis of Hepatitis B and elevated liver panel which prompted her evaluation in the ER. Upon arrival to the ER her alcohol level was 150 and she was noted to have an elevated transaminases, as well as a Total bili of 9.8. Her initial Hgb was 12.5. A CT abd/pelvis showed cirrhotic appearance of her liver as well as esophageal varices and ascites. She was subsequently admitted. While on the medical floor she had several episodes of hematemesis as well as hematochezia. A repeat Hgb was noted to be 9.5, and she was transferred to the ICU. At this point her hospitalist, Dr. Lennon contacted me directly and the decision was made to perform an emergent EGD tonight. At the time I saw the patient she denied abdominal pain, lightheadedness, dizziness, history of GI bleeding, or history of EGD in the past. She denied any further symptoms. Allergies Allergy/AdvReac Type Severity Reaction Status Date / Time No Known Allergies Allergy Unverified 02/15/24 11:42 Home Medications Medication Instructions Recorded Confirmed Type qnbcdotvruun-ipasvqog-ulzh 1 tab PO DAILY 02/15/24 02/15/24 History fumarate 18 mg-folic acid 400 mcg tablet (One-A-Day [facility]) Patient History Medical History Hepatitis B Thrombocytopenia Hypokalemia Alcohol abuse Transaminitis Liver failure, acute Surgical History No pertinent past surgical history Family History Other Depression Hypertension Social History Smoking Status: Current some day smoker Tobacco Type: Cigarettes Second Hand Exposure: Yes; Do You Dip or Chew Tobacco: No; Hx Alcohol Use: Yes Alcohol type: beer, wine and hard liquor Hx Substance Use: No Preferred Language: [place] Communication Ability: Effective Commercial Artist Required: No Beliefs That Will Affect Care: None Current Living Situation: Family Feels Safe at Home: Yes Safety Concerns: Feels Safe At This Time Assistive Devices: None Physical Exam Constitutional: + ill appearing; no acute distress Eyes: sclerae not anicteric ENMT: external ear and nose normal, oropharynx normal Neck: trachea midline, no thyromegaly Respiratory: normal respiratory effort, lungs clear to auscultation Cardiovascular: Rate/Rhythm: + tachycardic Gastrointestinal (Abdomen): Inspection/Auscultation: + abdomen distended Percussion/Palpation: abdomen soft, + ascites and + fluid wave; no guarding and abdomen not rigid Skin: + jaundice Psychiatric: Orientation: alert and oriented x 3 Results & Data Vital Signs (Past 12 Hours) Vital Signs Temp Pulse Pulse Resp BP BP Pulse Ox 02/15/24 23:10 37.4 C 148 H 20 112/76 96 02/15/24 22:50 37.4 C 142 H 18 113/80 96 02/15/24 22:00 37.4 C 127 H 18 113/76 96 02/15/24 21:50 37.4 C 124 H 20 113/76 96 02/15/24 20:21 127 H 02/15/24 20:21 37.4 C 118 H 22 118/80 96 02/15/24 18:06 142 H 20 121/82 96 02/15/24 16:00 126 H 20 127/79 96 02/15/24 14:30 132 H 20 130/86 97 02/15/24 14:00 121 H 20 132/82 96 02/15/24 13:46 122 H O2 Del Method 02/15/24 23:10 Room Air 02/15/24 22:50 Room Air 02/15/24 22:00 Room Air 02/15/24 21:50 Room Air 02/15/24 20:21 02/15/24 20:21 Room Air 02/15/24 18:06 Room Air 02/15/24 16:00 02/15/24 14:30 Room Air 02/15/24 14:00 02/15/24 13:46 PG Care Time/CCT Total # of Minutes Spent Total Time Spent with Patient: Total time spent is greater than 50% in coordination of care (as documented) at patient's floor/unit and/or counseling patient: Coding Level of Care Code 73493 IN/OBS CONSULT LVL 4,60M Diagnoses Alcohol abuse F10.10 Hepatitis B B19.10 Cirrhosis K74.60 Acute blood loss anemia D62
[2024-02-16] MEDS: MAGNESIUM SULFATE / D5W 1 GM/100 ML BAG IV ONE (01:00)
[2024-02-16 01:01] LABS: Fibrinogen 211 mg/dl (184-400)
[2024-02-16 01:08] LABS: Hematocrit (blood only) 24.3 % (37.0-47.0); Hemoglobin 8.1 g/dl (12.0-16.0)
[2024-02-16] MEDS ORDERED: SODIUM CHLORIDE 0.9% 250 ML IV PRN ×3 (01:15→01:20)
[2024-02-16] MEDS ORDERED: PROPOFOL IV EMULSION 10 MG/ML 20 ML VIAL IV ONE (01:21)
[2024-02-16] MEDS ORDERED: SUCCINYLCHOLINE CHLORIDE 20 MG/ML 10 ML VIAL IV ONE (01:21)
[2024-02-16] MEDS ORDERED: ETOMIDATE 2 MG/ML 20 ML VIAL IV ONE (01:22)
[2024-02-16] MEDS ORDERED: fentaNYL citrate PF 100 MCG/2 ML VIAL ONE (01:38)
[2024-02-16] MEDS ORDERED: ESMOLOL HCL INJ 10 MG/ML 10ML VIAL IV ONE (02:08)
--- NOTE | 2024-02-16 02:17 | GI REPORT ---
Patient Name: Verona Oneill Procedure Date: 02/16/2024 12:48 AM Date of : 1990 Admit Type: Inpatient Age: 33 Gender: Female Attending MD: Frederick Patel DO, Procedure: Upper GI endoscopy Providers: Frederick Patel DO Referring MD: Carla Brand DO Indications: Acute post hemorrhagic anemia, Hematemesis, Melena Medicines: General Anesthesia Complications: No immediate complications. Estimated Blood Loss: Estimated blood loss: none. Procedure: Pre-Anesthesia Assessment: - Prior to the procedure, a History and Physical was performed, and patient medications and allergies were reviewed. The patient's tolerance of previous anesthesia was also reviewed. The risks and benefits of the procedure and the sedation options and risks were discussed with the patient. All questions were answered, and informed consent was obtained. Prior Anticoagulants: The patient has taken no anticoagulant or antiplatelet agents. ASA Grade Assessment: III - A patient with severe systemic disease. After reviewing the risks and benefits, the patient was deemed in satisfactory condition to undergo the procedure. After obtaining informed consent, the endoscope was passed under direct vision. Throughout the procedure, the patient's blood pressure, pulse, and oxygen saturations were monitored continuously. The Scope was introduced through the mouth, and advanced to the third part of duodenum. The upper GI endoscopy was accomplished without difficulty. The patient tolerated the procedure well. Findings: Two columns of grade III varices with stigmata of recent bleeding were found in the middle third of the esophagus and in the lower third of the esophagus. Red kieran signs were present. Three bands were successfully placed with complete eradication, resulting in deflation of varices. There was no bleeding during the procedure. Red blood was found in the entire examined stomach. The examined duodenum was normal. Impression: - Grade III esophageal varices with stigmata of recent bleeding. Completely eradicated. Banded. - Red blood in the entire stomach. - Normal examined duodenum. - No specimens collected. Recommendation: - Return patient to ICU for ongoing care. - NPO. - Continue present medications including a Protonix gtt at 8 mg/hour and Octreotide at 50 micrograms/hour. - Recommend continued antibiotics with Rocephin for 1 week - Repeat upper endoscopy PRN for retreatment. - Recommend transfer to tertiary center if patient has any rebleeding. Frederick Cherry Jorge, DO 02/16/2024 2:16:49 AM This report has been signed electronically. Note Initiated On: 02/16/2024 12:48 AM Number of Addenda: 0 I attest to the content of the Intraoperative Record and orders documented therein, exceptions below {[id number]}
--- NOTE | 2024-02-16 02:30 | Anesthesiology Progress Note ---
Date of Service February 16, 2024 Anesthesia Post Procedure Vital Signs Vital Signs: Temp Pulse Pulse Resp BP BP BP 02/16/24 02:23 37.7 C H 137 H 24 103/56 L 02/16/24 02:20 37.7 C H 158 H 28 H 110/65 02/16/24 01:25 37.4 C 150 H 22 115/74 02/15/24 23:10 37.4 C 148 H 20 112/76 02/15/24 22:50 37.4 C 142 H 18 113/80 02/15/24 22:00 37.4 C 127 H 18 113/76 02/15/24 21:50 37.4 C 124 H 20 113/76 02/15/24 20:21 127 H 02/15/24 20:21 37.4 C 118 H 22 118/80 02/15/24 18:06 142 H 20 121/82 02/15/24 16:00 126 H 20 127/79 02/15/24 14:30 132 H 20 130/86 02/15/24 14:00 121 H 20 132/82 02/15/24 13:46 122 H 02/15/24 11:42 37.1 C 143 H 18 148/106 H Pulse Ox O2 Del Method O2 Flow Rate 02/16/24 02:23 97 2 02/16/24 02:20 95 2 02/16/24 01:25 99 02/15/24 23:10 96 Room Air 02/15/24 22:50 96 Room Air 02/15/24 22:00 96 Room Air 02/15/24 21:50 96 Room Air 02/15/24 20:21 02/15/24 20:21 96 Room Air 02/15/24 18:06 96 Room Air 02/15/24 16:00 96 02/15/24 14:30 97 Room Air 02/15/24 14:00 96 02/15/24 13:46 02/15/24 11:42 95 Room Air Transfer of Care Handoff Completed per policy Notes Mental Status: alert / awake / arousable Patient Amnestic to Procedure: Yes Nausea / Vomiting: see Notes below Pain: adequately controlled Airway Patency, RR, SpO2: stable & adequate BP & HR: see Notes below Hydration State: see Notes below Anesthetic Complications: no major complications apparent Notes: Patient had hematemesis and active hematochezia w/ melena. Pt is anemic and tachycardic from bleeding esophageal varices/cirrhosis. Patient was H/D stable throughout anesthetic, but remains critical.
--- NOTE | 2024-02-16 03:16 | Communication Note ---
Date of Service: February 16, 2024 Patient underwent EGD where she was found to have grade 3 varices with stigmata of recent bleeding, and underwent banding's with 3 bands placed with complete eradication per EGD report. See EGD note for detail. Patient extubated postprocedure, and remains hemodynamically stable and currently receiving blood transfusions. I did speak with biopharmaceutical rep and broach trouble shooter at [facility] in regards to transfer to tertiary center. At this time, patient has been accepted to [facility] per broach trouble shooter Dr. Jose Paredes for evaluation for TIPS procedure. Currently awaiting bed assignment, and transfer. Will continue with ongoing management in ICU pending transfer. CRITICAL CARE TIME - I have personally spent 38 minutes of critical care time in the direct management of this patient. This is a life/limb threatening event. This includes time spent evaluating patient, direct bedside care, chart review, placing orders, interpretation of diagnostic studies, discussion with consultants, patient, and family members, as well as other required patient management activities. This time is exclusive of all separately billable procedures, and teaching time and separate from and in addition to any other critical care service time. Coding Level of Care Code 79849 CRITICAL CARE EA ADD 30M
[2024-02-16] MEDS: POTASSIUM CHLORIDE / WTR 10 MEQ/100 ML PLCT IV SCH (03:20)
--- NOTE | 2024-02-16 03:30 | Discharge Summary ---
Date of Service February 16, 2024 Admission HPI Per Admitting Provider Ms. Oneill is a 33 year old female that presents to the ED today as recommended by her PCP after blood work revealed Hepatitis B Positive and Transaminitis. She has explained that she has had a habit of drinking either a bottle of wine multiple shots, or 8-10 beers on a regular almost daily basis. She reports that she is in the process of a separation from her ex- and in a custody faye with him regarding her 7-year-old son. She currently has partial custody of him. She is also in the process of looking for a permanent place to live. She has 2 friends that brought her into the ER today who are nondrinker's and both of her parents are known drinkers and overall good support for her. It appears that everybody has been advising her not to drink alcohol anymore. She is going to counseling with a therapist which has been helpful but she does realize that she is in need of a more intensive rehabilitation in order to abstain from alcohol. Really honest conversation held with her with regards to how severe and concerning her presentation is at such a young age. LFT's done yesterday and today: AST 360--> 309, SLT 54--> 46, Alk Phos 143. T. bili 9.8, serum alcohol level 150. UDS pending and hCG negative. In the ED she received Ativan 2 mg and banana bag. No tremors noted. CTAP: -The liver is enlarged, steatotic, and shows morphologic change of cirrhosis. -Esophageal varices and a small volume of abdominopelvic ascites indicate portal hypertension. -tiny round hypodense foci are seen throughout the liver, likely representing tiny cysts versus biliary hamartomas. This could also represent regenerative nodularity of cirrhosis. GI follow-up is recommended. -Cholelithiasis without CT evidence of acute cholecystitis. -Nonspecific fold thickening is seen throughout the bowel, possibly related to hypoproteinemia. Correlate clinically for signs of a nonspecific enteritis. *MELD score: 18 *Maddrey's Discriminant Function for ETOH Hepatitis: 20.4. > 32 indicates poor prognosis and may benefit from glucocorticoid therapy On examination, patient is AOx4 and able to answer all questions appropriately. No signs of tremor at bedside. She has telangiectasia on her face, ecchymosis, epistaxis (yesterday), ascites, scleral icterus. Patient will be admitted for alcohol induced liver failure. Will trend LFT's, GI consultation to help determine next steps, AWSS scale for withdrawal effects, replace potassium orally, BHL conversation and continued supportive treatment. Discharge Data Consultations 02/15/24 17:30 ED Decision to Admit Stat 02/15/24 18:05 Consult Gastroenterology Routine 02/15/24 19:11 Consult Behavioral Health Liaison Routine 02/16/24 00:00 Consult Investigation Manager Routine 02/16/24 02:53 Burn CD for patient Stat 02/16/24 03:03 Burn CD for patient Stat Procedures Performed Operation Date: 02/16/24 00:50 Actual Procedures p Esophagogastroduodenoscopy Dr Patel, banding esophageal varicies(Not Applicable) - Frederick Patel, DO Hospital Course (1) Liver failure, acute: (2) Transaminitis: (3) Hepatitis B: (4) Alcohol abuse: (5) Thrombocytopenia: (6) Hypokalemia: Plan Ms. Oneill is a 33 year old female that presents to the ED today as recommended by her PCP after blood work revealed Hepatitis B Positive and Transaminitis. She has explained that she has had a habit of drinking either a bottle of wine multiple shots, or 8-10 beers on a regular almost daily basis. She reports that she is in the process of a separation from her ex- and in a custody faye with him regarding her 7-year-old son. She currently has partial custody of him. She is also in the process of looking for a permanent place to live. She has 2 friends that brought her into the ER today who are nondrinker's and both of her parents are known drinkers and overall good support for her. It appears that everybody has been advising her not to drink alcohol anymore. She is going to counseling with a therapist which has been helpful but she does realize that she is in need of a more intensive rehabilitation in order to abstain from alcohol. Really honest conversation held with her with regards to how severe and concerning her presentation is at such a young age. LFT's done yesterday and today: AST 360--> 309, SLT 54--> 46, Alk Phos 143. T. bili 9.8, serum alcohol level 150. UDS pending and hCG negative. In the ED she received Ativan 2 mg and banana bag. No tremors noted. Patient will be admitted for alcohol induced liver failure. Will trend LFT's, GI consultation to help determine next steps, AWSS scale for withdrawal effects, replace potassium orally, BHL conversation and continued supportive treatment. Acute Liver Failure: Transaminitis: Hepatits B: Alcohol Abuse: Acute Telangiectasia, ecchymosis, epistaxis (yesterday), ascites, scleral icterus LFT's done yesterday and today: AST 360--> 309, SLT 54--> 46, Alk Phos 143 TBili 9.8 Serum Alcohol level 150 UDS pending, HCG negative CTAP: -The liver is enlarged, steatotic, and shows morphologic change of cirrhosis. -Esophageal varices and a small volume of abdominopelvic ascites indicate portal hypertension. -tiny round hypodense foci are seen throughout the liver, likely representing tiny cysts versus biliary hamartomas. This could also represent regenerative nodularity of cirrhosis. GI follow-up is recommended. -Cholelithiasis without CT evidence of acute cholecystitis. -Nonspecific fold thickening is seen throughout the bowel, possibly related to hypoproteinemia. Correlate clinically for signs of a nonspecific enteritis. *MELD score: 18 *Maddrey's Discriminant Function for ETOH Hepatitis: 20.4. > 32 indicates poor prognosis and may benefit from glucocorticoid therapy Check Phos level GI Consult placed May need Hepatology consult in the future Thrombocytopenia: Acute Plt 60 No active overt signs of bleeding, although has had easy bruising Recheck labs in AM Hypokalemia: Acute Serum K+ 3.2; replaced with 1 G IV Add 40 PO KCL Recheck K+ in AM Disposition: PCP: Dr. Rylie Vidal Code Status: Full Code VTE Prophylaxis: KELLY's/SCD's for now I spent a total of 88 minutes coordinating, documenting, and providing care for this patient excluding time spent in the performance of separately billed services. All of the aforementioned completed while collaborating with the assigned attending physician for a full treatment plan. Please see their addendum for further details. (Preceding documentation as per admitting provider.) 02/14 9:45 PM Patient with self-limited epistaxis episode without headache complaints. 1050 PM Hematemesis without unusual abdominal pain as per RN. SBP 110s Heart rate 1 40-1 60s as per RN Hemoglobin 9.5 from 12.5 on admission platelets 45 from 60 on admission AP UGIB Esophageal varices on CT imaging Alcoholic cirrhosis Anemia secondary to above Worsening thrombocytopenia ICU transfer due to hemodynamic instability N.p.o. IV PPI and IV octreotide IV ceftriaxone for SBP prophylaxis Transfuse 1 unit PRBC given active bleeding Transfuse 1 unit for his platelets given level less than 50 K Case discussed with Case of GI. Emergent EGD to be done tonight. EGD findings: Grade III esophageal varices with stigmata of recent bleeding. Completely eradicated. Banded. - Red blood in the entire stomach. - Normal examined duodenum. - No specimens collected. GI specialist later recommended tertiary center transfer to ICU provider. ICU provider discussed case with [facility] GI specialist and diversified crops farmworker. Patient kindly accepted for transfer by diversified crops farmworker Dr. Jose Paredes for evaluation for TIPS procedure. Total time to prepare this discharge summary was less than 10 minutes. Text document was generated using Confide voice recognition software. It may contain grammatical or spelling errors. Kindly contact undersigned for clarification of any documentation item in question.
[2024-02-16] MEDS: GABAPENTIN 600 MG TAB PO SCH (03:37)
[2024-02-16] MEDS: OCTREOTIDE BOLUS FROM BAG IV ONE (04:14)
[2024-02-16] MEDS: OCTREOTIDE ACETATE 500 MCG in 0.9 % SODIUM CHLORIDE 100 ML IV SCH (04:14)
[2024-02-16 05:46] LABS: INR 1.4 (0.9-1.1); Prothrombin Time 14.9 Seconds (9.0-12.0)
--- NOTE | 2024-02-16 06:04 | Electrocardiogram Report ---
Test Reason : Blood Pressure : / mmHG Vent. Rate : 135 BPM Atrial Rate : 135 BPM P-R Int : 122 ms QRS Dur : 084 ms QT Int : 318 ms P-R-T Axes : 040 -24 042 degrees QTc Int : 477 ms Sinus tachycardia Otherwise normal ECG No previous ECGs available Confirmed by Jerardo Randle ([id number]) on 02/16/2024 6:03:58 AM Referred By: Confirmed By:Александр Randle
[2024-02-16 06:16] LABS: Hematocrit (blood only) 26.7 % (37.0-47.0); Hemoglobin 9.1 g/dl (12.0-16.0); Mean Corpuscular Hemoglobin 33.5 pg (25.0-34.0); Mean Corpuscular Hgb Conc 34.1 g/dL (32.0-36.0); Mean Corpuscular Volume 98.2 fL (80.0-100.0); Mean Platelet Volume 11.6 fL (9.4-12.4); Platelet Count 69 K/uL (130-400); RDW Coefficient of Variation 18.1 % (11.5-14.5); RDW Standard Deviation 60.8 fL (36.4-46.3); Red Blood Count 2.72 M/uL (4.20-5.40); White Blood Count 6.66 K/ul (4.8-10.8)
[2024-02-16 06:39] LABS: Albumin Globulin Ratio 1.2 (0.9-2); Albumin Level 3.1 gm/dl (3.4-5.0); BUN Creatinine Ratio 9.4 (10-20); Calcium 7.3 mg/dl (8.6-10.3); Creatinine Clr Calc Pharmacy 120.5 ml/min; Est GFR (African American) 145.6 ml/min; Est GFR (Non-African American) 125.6 ml/min; Globulin 2.5 gm/dl (2.5-4.0); Magnesium 2.1 mg/dl (1.7-2.4); Potassium 4.7 mmol/L (3.5-5.1); Total Protein 5.6 gm/dl (6.0-8.3)
[2024-02-16 06:47] LABS: Appearance Urine Cloudy (Clear); Bacteria Urine Automated None Seen (None Seen); Bilirubin Urine 3+ (Negative); Blood Urine Negative (Negative); Color Urine Dark Yellow; Glucose Urine UA Negative (Negative); Ketones Urine Negative (Negative); Leukocyte Esterase Urine Trace (Negative); Protein Urine 1+ (Negative); Specific Gravity Urine 1.045 (1.000-1.030); Urobilinogen Urine Negative (Negative); WBC Urine Automated 0-5 /hpf (0-5); pH Urine 5.5 (4.5-7.5)
[2024-02-16 06:56] LABS: Amphetamines+Metham, Urine Neg (Neg); Barbiturates, Urine Neg (Neg); Benzodiazepine, Urine Neg (Neg); Cocaine, Urine Neg (Neg); MDMA (Ecstacy), Urine Neg (Neg); Marijuana, Urine Neg (Neg); Methadone, Urine Neg (Neg); Opiate, Urine Neg (Neg); Phencyclidine, Urine Neg (Neg)
[2024-02-16 07:14] LABS: Mucus Urine Present (None Prsent)
[2024-02-16 07:16] LABS: Granular Casts Urine Present /lpf (None Prsent)
[2024-02-16] MEDS ORDERED: ICU Protocol for HYPERglycemia SCH (07:30)
[2024-02-16] MEDS ORDERED: GABAPENTIN 600 MG TAB PO SCH (14:15)
--- OUTSIDE RECORDS SUMMARY | 2024-02-16 18:09 | External Medical Summary ---
Author Name Unknown Address Unknown Organization [id number]:[place] [place] [address] [place] [address] Laboratory Report Ordering Provider Test Date Status ADE CHOW 02/14/2024 09:19:56 Final Observation Date Value Abnormality Reference (Units ) Status WBC, Total 02/14/2024 09:19:56 7.30 4.00-10.8 0 (K/uL) Final RBC 02/14/2024 09:19:56 3.57 3.85-5.15 (M/uL) Final Hemoglobin 02/14/2024 09:19:56 12.4 12.0-15.3 (g/dL) Final Anemia reflex testing trigge rs on a HGB < 12.0 for Females and HGB < 13.0 for Males in accordance with the WHO Anemia Guidelines HCT 02/14/2024 09:19:56 37.5 36.0-45.2 (%) Final MCV 02/14/2024 09:19:56 105.0 81.5-97.5 (fL) Final MCH 02/14/2024 09:19:56 34.7 27.0-34.0 (pg) Final MCHC 02/14/2024 09:19:56 33.1 32.0-36.0 (g/dL) Final RDW 02/14/2024 09:19:56 17.3 11.5-15.5 (%) Final Platelets 02/14/2024 09:19:56 55 Below low normal 140 -400 (K/uL) Final MPV 02/14/2024 09:19:56 13.8 6.6-11.1 ( fL) Final Nucleated erythrocytes/100 leukocytes [Ratio] in Blood by Automated count 02/14/2024 09:19:56 0 <=0 (/100 WBCs) Fi nal Performing Location [facility] [place] [address] [place] [address]
--- OUTSIDE RECORDS SUMMARY | 2024-02-16 18:09 | External Medical Summary | Summary of Care ---
Author Name Unknown Organization [facility] Address [address] [place] [address] Phone [phone] Care Team Providers Care Stave Log Ripsaw Operator Name Role Phone Unavailable Primary Care Provider Unavailabl e Reason for Visit * Reason Comments Outpatient Testing Encounter Details Date Type Department Care Team (Late st Contact Info) Description 02/14/2024 9:40 AM EDT Laboratory Laboratory [address] [place] [id number] [place] [id number] Jaundice Allergies No known active allergiesdocumented as of this encounter (statuses as of 02/14/2024) Medications No known medicationsdocumented as of this encounter (statuses as of 02/14/2024) Active Problems No known active problems documented as of this encounter (statuses as of 02/14/2024) Immunizations Name Administration Dates Next Due PPD 01/24/2017 documented as of this encounter Social History Tobacco Use Types Packs/Day Years Used Date Smoking Tobacco: Never Smokeless Tobacco: Never Alcohol Use Standard Drinks/Week Comments No 0 (1 standard drink = 0.6 oz pur e alcohol) Sex and Gender Information Value Date Recorded Sex Assigned at Not on file Gender Identity Not on file Sexual Orientation Not on file Job Start Date Occupation Industry Not on file Not on file Not on file documented as of this encounter Plan of Treatment Pending Results Name Type Priority Associated Diagnoses Date /Time CBC WITH WBC DIFFERENTIAL AND ANEMIA REFLEX WORKUP Lab Routine Jaundice 02/14/2024 9:19 AM EDT COMPREHENSIVE METABOLIC PANEL Lab Routine Jaundice 02/14/2024 9:19 AM EDT TSH WITH FREE T4 IF INDICATED Lab Routine Jaundice 02/14/2024 9:19 AM EDT HEPATITIS C ANTIBODY SCREEN WITH PROGRESSION TO HEPATITIS C RNA QUANTITATIVE Lab Routine Jaundice 02/14/2024 9:19 AM EDT HEPATITIS A ANTIBODIES IGG AND IGM Lab Routine Jaundice 02/14/2024 9:19 AM EDT HEPATITIS B SURFACE ANTIBODY Lab Routine Jaundice 02/14/2024 9:19 AM EDT HEPATITIS B SURFACE ANTIGEN Lab Routine Jaundice 02/14/2024 9:19 AM EDT ANEMIA CBC Lab Routine Jaundice 02/14/2024 9:19 AM EDT DIFFERENTIAL, AUTOMATED Lab Routine Jaundice 02/14/2024 9:19 AM EDT ANEMIA REFLEX CHEMISTRY HOLD Lab Routine Jaundice 02/14/2024 9:19 AM EDT HEPATITIS C ANTIBODY Lab Routine Jaundice 02/14/2024 9:19 AM EDT HEPATITIS C RNA ADD ON Lab Routine Jaundice 02/14/2024 9:19 AM EDT Health Maintenance Due Date Last Done Comments Depression Screening 2003 HIV Screening 2006 Hepatitis C Screening 2009 DTaP,Tdap,and Td Vaccines (1 - Tdap) 2010 Hepatitis B (1 of 3 - 19+ 3-dose series) 2010 HPV/Co-Test 2021 COVID-19 Vaccine ( - 2022-2 4 season) 2023 Influenza Vaccine (FLU shot) (Season Ended) 2024 Cervical Cancer Screening 11/02/2024 Pap Smear 11/02/2024 11/02/2021, 07/10/2019 GARDASIL-HPV IMMUNIZATION SERIES Aged Out No longer eligible b ased on patient's age to complete this topic MENINGOCOCCAL (MENACTRA/MENVEO) Aged Out No longer eligible b ased on patient's age to complete this topic Pneumococcal Vaccine: Pediatrics (0 to 5 Years) and At-Risk Patients (6 to 64 Years) Aged Out No longer eligible b ased on patient's age to complete this topic documented as of this encounter Medical Devices Not on filedocumented as of this encounter Visit Diagnoses Diagnosis Jaundice Jaundice, unspecified, not of documented in this encounter
--- OUTSIDE RECORDS SUMMARY | 2024-02-16 18:09 | External Medical Summary | Summary of Care ---
Author Name Unknown Organization [facility] Address [address] [place] [address] Phone [phone] Care Team Providers Care Supervisor Plasma Name Role Phone Rylie Vidal DO Primary Care Provider [phone] Reason for Referral * Precert (Within 24 hrs (call dept; emergent)) - Pending Review Specialty Diagnoses / Procedures Referred By Paulie leslie Referred To Contact Radiology Diagnoses Jaundice Abdominal distension Procedures CT ABDOMEN W WO IV AND W ORAL CONTRAST Ghazala Mejias CRNP [address] [place] [address] [place] [id number] Referral ID Status Reason Start Date Expiration Date V isits Requested Visits Authorized [id number] Pending Review 02/14/2024 999 [id number] Reason for Visit * Reason Comments NEW PATIENT Acute Encounter Details Date Type Department Care Team (Late st Contact Info) Description 02/14/2024 9:00 AM EDT Office Visit Family Medicine [address] [place] [phone] Ghazala Mejias CRNP [address] [place] [address] [place] [id number] Abdominal distension*; Jaundice; Abnormal bruising; Skin lesion; Tachycardia Allergies No known active allergiesdocumented as of this encounter (statuses as of 02/14/2024) Medications Medication Sig Dispensed Refills Start Date End Date Status Norgestimate-Eth Estradiol 0.25-35 MG-MCG Oral Tablet (Sprintec 28) Take 1 Tab by mouth daily. 0 02/14/2024 Discontinued (Patient preference/d iscontinuati on) Hydrocortisone 2.5 % External CreamIndications: Periorbital dermatitis Apply topically to affected area 3 times a day. To affected area. 30 g 5 12/21/2020 02/14/2024 Discontinued (Medication List Clean Up) documented as of this encounter (statuses as of 02/14/2024) Active Problems No known active problems documented as of this encounter (statuses as of 02/14/2024) Immunizations Name Administration Dates Next Due PPD 01/24/2017 documented as of this encounter Social History Tobacco Use Types Packs/Day Years Used Date Smoking Tobacco: Never Smokeless Tobacco: Never Tobacco Cessation:Counseling Given: Not Answered Alcohol Use Standard Drinks/Week Comments No 0 (1 standard drink = 0.6 oz pur e alcohol) Sex and Gender Information Value Date Recorded Sex Assigned at Not on file Gender Identity Not on file Sexual Orientation Not on file Job Start Date Occupation Industry Not on file Not on file Not on file documented as of this encounter Last Filed Vital Signs Vital Sign Reading Time Taken Comments Blood Pressure 142/86 02/14/2024 8:51 AM EDT Pulse 140 02/14/2024 8:51 AM EDT Temperature 36.7 C (98 F) 02/14/2024 8:51 AM EDT Respiratory Rate 16 02/14/2024 8:51 AM EDT Oxygen Saturation 98% 02/14/2024 8:51 AM EDT Inhaled Oxygen Concentration - - Weight 59.6 kg (131 lb 7 oz) 02/14/2024 8:51 AM EDT Height 157.5 cm (5' 2") 02/14/2024 8:51 AM EDT Body Mass Index 24.04 02/14/2024 8:51 AM EDT documented in this encounter Nursing Notes * Estela Roque LPN - 02/14/2024 8:49 AM EDT Found lumps Nosebleeds Bloating Tired Bruising documented in this encounter Plan of Treatment Upcoming Encounters Date Type Department Care Team (Late st Contact Info) Description 02/15/2024 10:30 AM EDT Imaging Radiology [address] [place] [phone] 02/20/2024 1:45 PM EDT Imaging Radiology [facility] [address] [place] [address] 09/30/2024 11:30 AM EST Office Visit Family Medicine [address] [place] [phone] [place] [address] Pending Results Name Type Priority Associated Diagnoses [...] Lab Routine Jaundice 02/14/2024 9:19 AM EDT Scheduled Orders Name Type Priority Associated Diagnoses Orde r Schedule CBC WITH WBC DIFFERENTIAL AND ANEMIA REFLEX WORKUP Lab Routine Jaundice Abnormal bruising Tachycardia Expected: 02/14/2024 (Approximate), Expires: 02/13/2025 COMPREHENSIVE METABOLIC PANEL Lab Routine Jaundice Tachycardia Expected: 02/14/2024 (Approximate), Expires: 02/13/2025 TSH WITH FREE T4 IF INDICATED Lab Routine Jaundice Tachycardia Expected: 02/14/2024 (Approximate), Expires: 02/13/2025 HEPATITIS C ANTIBODY SCREEN WITH PROGRESSION TO HEPATITIS C RNA QUANTITATIVE Lab Routine Jaundice Abdominal distension Expected: 02/14/2024 (Approximate), Expires: 02/13/2025 HEPATITIS A ANTIBODIES IGG AND IGM Lab Routine Jaundice Abdominal distension Expected: 02/14/2024 (Approximate), Expires: 02/13/2025 HEPATITIS B SURFACE ANTIBODY Lab Routine Jaundice Abdominal distension Expected: 02/14/2024 (Approximate), Expires: 02/13/2025 HEPATITIS B SURFACE ANTIGEN Lab Routine Jaundice Abdominal distension Expected: 02/14/2024 (Approximate), Expires: 02/13/2025 CT ABDOMEN W WO IV AND W ORAL CONTRAST Medical Imaging STAT Jaundice Abdominal distension Expected: 02/14/2024, Expires: 03/15/2025 US CHEST OR PLEURAL EFFUSION Medical Imaging Routine Skin lesion Expected: 02/14/2024, Expires: 03/15/2025 EKG EKG Routine Tachycardia Expected: 02/14/2024 (Approximate), Expires: 03/15/2025 Health Maintenance Due Date Last Done Comments Depression Screening 2003 HIV Screening 2006 Hepatitis C Screening 2009 DTaP,Tdap,and Td Vaccines (1 - Tdap) 2010 Hepatitis B (1 of 3 - 19+ 3-dose series) 2010 HPV/Co-Test 2021 COVID-19 Vaccine (1 - 2022-2 4 season) 2023 Influenza Vaccine [...] as of this encounter Visit Diagnoses Diagnosis Abdominal distension- Primary Flatulence, eructation, and gas pain Jaundice Jaundice, unspecified, not of Abnormal bruising Other symptoms involving skin and integumentary tissues Skin lesion Unspecified disorder of skin and subcutaneous tissue Tachycardia Tachycardia, unspecified documented in this encounter Care Teams Supervisor Plasma Relationship Specialty Start Date End Date Rylie Vidal DO [address] [place] [address] [place] [phone] PCP - General Internal Medicine 02/14/24 documented as of this encounter
--- OUTSIDE RECORDS SUMMARY | 2024-02-16 18:10 | External Medical Summary ---
Author Name Unknown Address Unknown Organization [id number]:[facility] [place] [address] [place] [address] Laboratory Report Ordering Provider Test Date Status ADE CHOW 02/14/2024 09:19:56 Final Observation Date Value Abnormality Reference (Units ) Status BUN 02/14/2024 09:19:56 2 Below low normal 6-20 (mg/dL) Final Creatinine 02/14/2024 09:19:56 0.5 0.5-1.0 (mg/dL) Final Glomerular filtration rate/1.73 sq M.predicted [Volume Rate/Area] in Serum, Plasma or Blood by Creatinine-based formula (CKD-EPI) 02/14/2024 09:19:56 >90 >=60 (mL/min) Final eGFR is calculated based on the CKD-EPI 2020 equation Sodium 02/14/2024 09:19:56 137 135-146 (m mol/L) Final Potassium 02/14/2024 09:19:56 3.1 Below low normal 3.5 -5.1 (mmol/L) Final Cl 02/14/2024 09:19:56 99 98-107 (mm ol/L) Final CO2 02/14/2024 09:19:56 24 22-32 (mmo l/L) Final Anion gap 02/14/2024 09:19:56 14 7-15 (mmol /L) Final Glucose 02/14/2024 09:19:56 96 70-120 (mg /dL) Final Albumin 02/14/2024 09:19:56 3.7 Below low normal 3.8 -5.0 (g/dL) Final AST (Aspartate aminotransferase) 02/14/2024 09:19:56 360 Above high normal 10-35 (U/L) Final Alk Phos 02/14/2024 09:19:56 176 Above high normal 35 -130 (U/L) Final Bilirubin, Total 02/14/2024 09:19:56 8.4 Above high no rmal <=1.2 (mg/dL) Final Calcium 02/14/2024 09:19:56 8.7 8.4-10.2 ( mg/dL) Final Protein 02/14/2024 09:19:56 7.2 6.0-8.3 (g /dL) Final ALT (Alanine aminotransferase) 02/14/2024 09:19:56 54 Above high normal 10-35 (U/L) Final Performing Location [facility] [place] [address] [facility] [address]
--- OUTSIDE RECORDS SUMMARY | 2024-02-16 18:10 | External Medical Summary | Summary of Care ---
Author Name Unknown Organization [facility] Address [address] [place] [address] Phone [phone] Care Team Providers Care Sales Associate Cashier Name Role Phone Broderick Perez MD Primary Care Provider Reason for Visit * Reason Onset Date Comments MyCode Nonconsent - Not interested at this time 12/24/2023 Encounter Details Date Type Department Care Team (Late st Contact Info) Description 12/24/2023 Orders Only Outcomes Research Department [address] [place] [address] Barbie Wilhelm CHRA MyCode Nonconsent Documentation Allergies No known active allergiesdocumented as of this encounter (statuses as of 12/24/2023) Medications Medication Sig Dispensed Refills Start Date End Date Status Norgestimate-Eth Estradiol 0.25-35 MG-MCG Oral Tablet (Sprintec 28) Take 1 Tab by mouth daily. 0 Active Hydrocortisone 2.5 % External CreamIndications:Angela orbital dermatitis Apply topically to affected area 3 times a day. To affected area. 30 g 5 12/21/2020 Active documented as of this encounter (statuses as of 12/24/2023) Active Problems No known active problems documented as of this encounter (statuses as of 12/24/2023) Immunizations Name Administration Dates Next Due PPD [...] on file documented as of this encounter Progress Notes * Barbie Wilhelm CHRA - 12/24/2023 8:45 AM EST MyCode Nonconsent Documentation Verona Oneill was approached in the clinic regarding participation in the MyCode Project and did not consent. documented in this encounter Plan of Treatment Health Maintenance Due Date Last Done Comments Depression Screening 2003 HIV Screening 2006 Hepatitis C Screening 2009 DTaP,Tdap,and Td Vaccines (1 - Tdap) 2010 Hepatitis B (1 of 3 - 19+ 3-dose series) 2010 HPV/Co-Test 2021 COVID-19 Vaccine ( - 2022-2 4 season) 2023 Influenza Vaccine (FLU shot) (#1) 2023 Cervical Cancer Screening 11/02/2024 Pap Smear 11/02/2024 [...] Not on filedocumented as of this encounter Care Teams Sales Associate Cashier Relationship Specialty Start Date End Date Broderick Perez MD PCP - General Family Medicine 01/24/17 documented as of this encounter
--- OUTSIDE RECORDS SUMMARY | 2024-02-16 18:10 | External Medical Summary ---
Author Name Unknown Address Unknown Organization K01:LAB[facility]ATORY [facility] [address] [place] [address] Laboratory Report Ordering Provider Test Date Status GLENROY CHOWT 02/14/2024 09:19:56 Final Observation Date Value Abnormality Reference (Units) Status Hepatitis B virus surface Ab [Units/volume] in Serum or Plasma by Immunoassay 02/14/2024 09:19:56 611.0 (mIU/mL) Final Hepatitis B virus surface Ab [Presence] in Serum by Immunoassay 02/14/2024 09:19:56 Positive Final HEPATITIS B SURFACE ANTIBODY, INTERPRETATION 02/14/2024 09:19:56 Immune to Hepatitis B Virus Final POSITIVE: >=11.5 mIU/mL
INDETERMINATE: 8.5-<11.5 mIU/mL
NEGATIVE: <8.5 mIU/mL Performing Location [facility] [place] - [facility] [place] [address]
--- OUTSIDE RECORDS SUMMARY | 2024-02-16 18:10 | External Medical Summary ---
Author Name Unknown Address Unknown Organization [id number]:[facility] - [address] [place] [address] Laboratory Report Ordering Provider Test Date Status ADE CHOW 02/14/2024 09:19:56 Final Observation Date Value Abnormality Reference (Units ) Status T4, Free 02/14/2024 09:19:56 1.9 Above high normal 0. 9-1.7 (ng/dL) Final Performing Location [facility] - [address] [place] [address]
--- OUTSIDE RECORDS SUMMARY | 2024-02-16 18:10 | External Medical Summary ---
Author Name Unknown Address Unknown Organization [id number]:[facility] [place] - [address] [facility] [address] Laboratory Report Ordering Provider Test Date Status ADE CHOW 02/14/2024 09:19:56 Final Observation Date Value Abnormality Reference (Units ) Status TSH 02/14/2024 09:19:56 8.44 Above high normal 0. 27-4.20 (uIU/mL) Final Performing Location [facility] [place] - [address] [facility] [address]
--- OUTSIDE RECORDS SUMMARY | 2024-02-16 18:10 | External Medical Summary ---
Author Name Unknown Address Unknown Organization [id number][facility] [place] [address] [place] [address] Laboratory Report Ordering Provider Test Date Status ADE CHOW 02/14/2024 09:19:56 Final Observation Date Value Abnormality Reference (Units ) Status Hep A, IgG and/or IgM 02/14/2024 09:19:56 Negative Negative Final Performing Location [facility] - [address] [place] [address]
--- OUTSIDE RECORDS SUMMARY | 2024-02-16 18:10 | External Medical Summary ---
Author Name Unknown Address Unknown Organization [id number]:[facility] - [address] [place] [address] Laboratory Report Ordering Provider Test Date Status ADE CHOW 02/14/2024 09:19:56 Final Observation Date Value Abnormality Reference (Units ) Status Hep C Ab 02/14/2024 09:19:56 Negative Negative Final Further HCV quantitative sienna ting not performed per protocol. Performing Location [facility] - [address] [place] [address]
--- OUTSIDE RECORDS SUMMARY | 2024-02-16 18:10 | External Medical Summary ---
Author Name Unknown Address Unknown Organization [id number]:[facility] - [address] [facility] [address] Laboratory Report Ordering Provider Test Date Status ADE CHOW 02/14/2024 09:19:56 Final Observation Date Value Abnormality Reference (Units ) Status SYNC LEUKOCYTES IN BLOOD BY AUTOMATED COUNT 02/14/2024 09:19:56 7.30 4.00-10.80 (K/uL) Final Segs 02/14/2024 09:19:56 69.7 40.0-75.0 (%) Final Lymphs % 02/14/2024 09:19:56 19.9 18.0-42.0 (%) Final Monos 02/14/2024 09:19:56 8.6 1.0-11.0 (%) Final Eosinophils 02/14/2024 09:19:56 0.8 0.0-6.0 (%) Final Basos 02/14/2024 09:19:56 0.5 0.0-2.0 (%) Final Immature Granulocyte, Percent 02/14/2024 09:19:56 0.5 0.0-2.0 (%) Final Absolute Segs 02/14/2024 09:19:56 5.08 1.80-7.70 (K/uL) Final Lymphs, absolute 02/14/2024 09:19:56 1.45 1.00-4.80 (K/ul) Final Monos, Abs 02/14/2024 09:19:56 0.63 0.00-1.10 (K/uL) Final Eos, Abs 02/14/2024 09:19:56 0.06 0.00-0.70 (K/uL) Final Basos, Abs 02/14/2024 09:19:56 0.04 0.00-0.20 (K/uL) Final Immature Granulocytes, Number 02/14/2024 09:19:56 0.04 0.00-0.20 (K/uL) Final Performing Location [facility] - [address] [facility] [address]
--- OUTSIDE RECORDS SUMMARY | 2024-02-16 18:10 | External Medical Summary ---
Author Name Unknown Address Unknown Organization [id number]:[facility] - [address] [place] [address] Laboratory Report Ordering Provider Test Date Status ADE CHOW 02/14/2024 09:19:56 Final Observation Date Value Abnormality Reference (Units ) Status Hep B surface Ag 02/14/2024 09:19:56 Negative Neg ative Final Performing Location [facility] - [address] [place] [address]
[2024-02-17 07:28] LABS: HBSAG NON-REACTIVE (NON-REACTIVE); Hepatitis A Antibody IgM NON-REACTIVE (NON-REACTIVE); Hepatitis B Core Antibody IgM NON-REACTIVE (NON-REACTIVE)
[2024-02-17] MEDS ORDERED: GABAPENTIN 600 MG TAB PO SCH (18:15)
[2024-02-19] MEDS ORDERED: GABAPENTIN 600 MG TAB PO SCH (06:15)
== END 2024-02-16 08:30 | disposition short-term general hospital (02) | DRG 432 ==
LOC: ED 11:28 → 2S 18:05 → SUATTDRO 18:05 → 2S 20:14 → 1E 02-16